=== PATIENT | male | born 1950 | race Caucasian/White ===

== ENCOUNTER 2019-12-23 04:09 | Emergency (ER) | payer MEDICAID ==
[2008-08-30 14:45] VITALS: BP 137/91
[~2019-12-23] VITALS: Ht 180.3 cm; Wt 81.8 kg
[~2019-12-23 04:09] MED LIST: BACTRIM 400 MG-1 TAB PO; BACTRIM DS 8001 TAB PO; CEPHALEXIN; CEPHALEXIN500 M1 PO; CIPRO 500MG TA500 MG PO; CLEOCIN HC150 MG/CAP PO; DAZIDOX10 MG; DILAUDID 4MG TAB4 MG; DILAUDID 4MG TAB4 MG PO; FUROSEMIDE; K-TAB20 PO; LASIX 20MG TABL20 MG PO; LASIX 40MG TABL40 MG PO; LORTAB 10/500 51 TAB PO; LORTAB 5/500 501 TAB PO; MVI; OXYCODONE; OXYCONTIN40 MG PO; OXYCONTIN80 MG PO; PERCOCET 500 MG1 TAB PO; SOMA; SOMA 350MG350 MG/TAB PO; SOMA350 MG PO; VALIUM 10MG10 MG/TAB PO
[2019-12-23 04:10] VITALS: TEMP 98.2
[2019-12-23 05:29] LABS: COLLECTION METHOD CLEAN CATCH
[2019-12-23 05:34] LABS: PH 7 (5-8); SQUAMOUS EPITHELIAL None Seen /hpf; URINE APPEARANCE Hazy; URINE BACTERIA None Seen /hpf; URINE BILIRUBIN Negative (NEGATIVE); URINE BLOOD Negative (NEGATIVE); URINE COLOR Yellow; URINE GLUCOSE Negative (NEGATIVE); URINE KETONE Negative (NEGATIVE); URINE LEUKOCYTE ESTERASE Negative (NEGATIVE); URINE NITRATE Negative (NEGATIVE); URINE PROTEIN(semi-quant) Negative (NEGATIVE); URINE RBC None Seen /hpf; URINE UROBILINOGEN Negative (NEGATIVE)
[2019-12-23 06:10] VITALS: BP 149/83; PULSE 73
== END 2019-12-23 06:14 | disposition home or self-care (01) ==
LOC: COL.ER 04:09
PROVIDERS: Emergency Medicine
DX: M54.5 Low back pain (principal); G89.29 Other chronic pain

== ENCOUNTER 2023-06-04 17:43 | Emergency (ER) | payer MEDICAID ==
[~2023-06-04] VITALS: Ht 180.3 cm; Wt 70.5 kg
[2023-06-04 18:23] VITALS: TEMP 98.7
[2023-06-04 21:08] LABS: COLLECTION METHOD CLEAN CATCH
[2023-06-04 21:13] LABS: PH 6.5 (5.0-8.5); URINE APPEARANCE CLEAR (CLEAR/HAZY); URINE BLOOD NEGATIVE (NEGATIVE); URINE COLOR YELLOW (YELLOW); URINE GLUCOSE NEGATIVE (NEGATIVE); URINE KETONE NEGATIVE (NEGATIVE); URINE NITRATE NEGATIVE (NEGATIVE); URINE PROTEIN(semi-quant) NEGATIVE (NEGATIVE)
[2023-06-04 21:14] LABS: BASO % 1.2 % (0.0-2.0); EOS # 0.1 K/mm3 (0.0-0.7); EOS % 1.9 % (0.0-4.0); GRAN # 1.7 K/mm3 (1.4-6.5); GRAN % 65.7 % (42.2-75.2); HEMATOCRIT 38.1 % (42.0-52.0); HEMOGLOBIN 13.5 g/dl (13.5-18.0); LYMPH # 0.6 K/mm3 (1.2-3.4); LYMPH % 22.2 % (20.0-51.0); MEAN CELL VOLUME 83 fl (80.0-100.0); MEAN CORPUSCULAR HEMOGLOBIN 29 pg (27-31); MEAN CORPUSCULAR HGB CONC 35 g/dl (33.0-37.0); MEAN PLATELET VOLUME 10.9 fl (7.4-10.4); MONO # 0.2 K/mm3 (0.1-0.6); MONO % 8.6 % (1.7-9.3); RED BLOOD COUNT 4.61 M/mm3 (4.20-5.60); REDCELL DISTRIBUTION WIDTH-CV 13.8 % (11.5-14.5)
[2023-06-04 21:36] LABS: PLATELET COUNT 39 K/mm3 (130-400)
[2023-06-04 21:39] LABS: ALBUMIN 4.3 g/dL (3.4-4.8); C-REACTIVE PROTEIN 0.02 mg/dL (0.00-0.50); CALCIUM 9.4 mg/dL (8.4-10.2); CREATININE, serum 0.85 mg/dL (0.72-1.25); POTASSIUM 3.8 mEq/L (3.5-4.5); TOTAL PROTEIN 7.5 g/dl (6.2-8.1)
[2023-06-04 21:42] LABS: ERYTHROCYTE SEDIMENTATION RATE 1 mm/hr (0-30)
[2023-06-04 22:05] LABS: BILIRUBIN,TOTAL 1.3 mg/dL (0.2-1.2)
[2023-06-04 22:15] VITALS: BP 157/83; PULSE 64
== END 2023-06-04 22:32 | disposition home or self-care (01) ==
LOC: COL.ER 17:43
PROVIDERS: Emergency Medicine
DX: L97.519 Non-pressure chronic ulcer of other part of right foot with unspecified severity (principal); G89.29 Other chronic pain; M54.50 Low back pain, unspecified; Z79.891 Long term (current) use of opiate analgesic